=== PATIENT | female | born 2000 | race Caucasian/White ===

== ENCOUNTER 2025-10-15 22:08 | Emergency (ER) | payer OTHER ==
[~2025-10-15] VITALS: Ht 162.6 cm; Wt 54.4 kg
[2025-10-15 22:49] VITALS: BP 129/78
[2025-10-15 23:48] VITALS: BP 128/72; TEMP 97.5; O2SAT 100
== END 2025-10-15 23:45 | disposition left against medical advice (07) ==
LOC: ER 22:12
DX: J02.9 Acute pharyngitis, unspecified (principal); B97.89 Other viral agents as the cause of diseases classified elsewhere; R07.9 Chest pain, unspecified; R51.9 Headache, unspecified
CPT/HCPCS: A4606; A4663